=== PATIENT | female | born 1990 | race Caucasian/White ===

== ENCOUNTER → 2018-04-24 16:50 | Outpatient (CLI) | payer BC, SELFPAY ==
[2016-10-19 11:20] VITALS: BMI 30.9
[2018-04-29 11:53] LABS: HPV Reflexed? NOT INDICATED
== END ==
PROVIDERS: Visit Provider Obstetrics & Gynecology
DX: Z01.419 Encounter for gynecological examination (general) (routine) without abnormal findings (principal); Z12.4 Encounter for screening for malignant neoplasm of cervix
CPT/HCPCS: 87624; 88175; G0145

== ENCOUNTER → 2018-05-18 09:05 | Outpatient (CLI) | payer BC, SELFPAY ==
[2018-05-18 11:07] LABS: Follicle Stimulating Hormone 6.4 mIU/mL; GGTP 12 U/L (5-55); Glucose 102 mg/dL (74-106)
[2018-05-18 11:14] LABS: Insulin 25.1 mU/L (2.6-37.6); Progesterone Level 0.25 ng/mL (See Comment); Vitamin D,25 Hydroxy 8.5 ng/mL (29.95-100.01)
[2018-05-19 20:06] LABS: DHEA Sulfate 139.3 ug/dL (84.8-378.0); Thyroid Peroxidase AB 10 IU/mL (0-34)
[2018-05-20 10:39] LABS: Sex Hormone-binding Globulin 51.4 nmol/L (24.6-122.0); Thyroglobulin Antibody < 1.0 IU/mL (0.0-0.9)
[2018-05-21 10:43] LABS: 17-Hydroxyprogesterone 40 ng/dL (.)
== END ==
PROVIDERS: Visit Provider Obstetrics & Gynecology
DX: N92.6 Irregular menstruation, unspecified (principal); E03.9 Hypothyroidism, unspecified; R63.5 Abnormal weight gain
CPT/HCPCS: 36415; 82306; 82627; 82947; 82977; 83001; 83498; 83525; 84144; 84146; 84270; 84403; 86376; 86800; 82626

== ENCOUNTER → 2018-06-06 12:57 | Outpatient (CLI) | payer BC, SELFPAY ==
[2016-10-19 11:20] VITALS: BMI 30.9
[2018-06-06 14:02] LABS: Estradiol 58.8 pg/mL
[2018-06-06 14:09] LABS: Progesterone Level 11.56 ng/mL (See Comment)
== END ==
PROVIDERS: Visit Provider Obstetrics & Gynecology
DX: N92.6 Irregular menstruation, unspecified (principal)
CPT/HCPCS: 36415; 82533; 82670; 84144

== ENCOUNTER → 2018-10-16 | Outpatient (CLI) | payer BC, SELFPAY ==
[2018-10-16 12:23] LABS: hCG Titer Quant., Serum < 1 mIU/mL (1-3)
[2018-10-16 12:28] LABS: Free T3 2.9 pg/mL (2.18-3.98); Glucose 105 mg/dL (74-106); Thyroid Stim Hormone (TSH) 3.67 uIU/mL (0.358-3.74)
[2018-10-16 12:30] LABS: Insulin 18.5 mU/L (2.6-37.6)
[2018-10-20 09:07] LABS: DHEA Sulfate 138.8 ug/dL (84.8-378.0)
[2018-10-20 16:38] LABS: T3 Reverse 15.1 ng/dL (9.2-24.1)
== END | disposition home or self-care (01) ==
LOC: WOBLAB 10:33
PROVIDERS: Visit Provider Obstetrics & Gynecology
DX: E02 Subclinical iodine-deficiency hypothyroidism (principal); Z13.89 Encounter for screening for other disorder
CPT/HCPCS: 36415; 82533; 82627; 82947; 83525; 84403; 84439; 84443; 84481; 84482; 84702; 82626

== ENCOUNTER → 2018-10-30 | Outpatient (CLI) | payer BC, SELFPAY ==
[2016-10-19 11:20] VITALS: BMI 30.9
[2018-10-30 12:15] LABS: Ferritin 111 ng/mL (8-252); Iron 58 ug/dL (50-170); Iron Binding Capacity,Total 349 ug/dL (250-450); Magnesium 2.2 mg/dL (1.6-2.6); PERCENT IRON SATURATION 16.6 % (15.0-55.0)
[2018-10-30 12:20] LABS: Vitamin B12 1092 pg/mL (211-911); Vitamin D,25 Hydroxy 43.5 ng/mL (29.95-100.01)
[2018-10-30 12:26] LABS: Homocysteine 14.7 umol/L (3.2-10.7)
[2018-11-01 20:07] LABS: Folate, Hemolysate Test 148.6 ng/mL (Not Estab.); Folate, RBC (Hct) Test 44.9 % (34.0-46.6)
[2018-11-02 11:58] LABS: Folates, RBC Test 331 ng/mL (>498)
== END | disposition home or self-care (01) ==
LOC: WOBLAB 11:18
PROVIDERS: Visit Provider Obstetrics & Gynecology
DX: N92.6 Irregular menstruation, unspecified (principal); E02 Subclinical iodine-deficiency hypothyroidism
CPT/HCPCS: 36415; 82306; 82607; 82728; 82747; 83090; 83540; 83550; 83735; 83921; 85014

== ENCOUNTER → 2018-11-12 | Outpatient (CLI) | payer BC, SELFPAY | END | disposition home or self-care (01) | LOC: LAB.FUTURE 11:24 | PROVIDERS: Visit Provider Obstetrics & Gynecology | DX: E02 Subclinical iodine-deficiency hypothyroidism (principal); N92.6 Irregular menstruation, unspecified ==

== ENCOUNTER → 2019-02-08 11:17 | Outpatient (CLI) | payer BC, SELFPAY ==
[2016-10-19 11:20] VITALS: BMI 30.9
[2019-02-08 12:23] LABS: Free T3 2.9 pg/mL (2.18-3.98); T4 Free Direct 1.19 ng/dL (0.76-1.46); Thyroid Stim Hormone (TSH) 4.44 uIU/mL (0.358-3.74)
[2019-02-08 12:24] LABS: Homocysteine 5.2 umol/L (3.2-10.7)
== END ==
PROVIDERS: Visit Provider Obstetrics & Gynecology
DX: E02 Subclinical iodine-deficiency hypothyroidism (principal)
CPT/HCPCS: 36415; 82746; 83090; 84439; 84443; 84481

== ENCOUNTER → 2019-11-15 09:20 | Outpatient (CLI) | payer BC, SELFPAY ==
[2019-11-15 11:09] LABS: hCG Titer Quant., Serum 171 mIU/mL (1-3)
[2019-11-16 12:58] LABS: Progesterone Level 0.72 ng/mL (See Comment)
== END ==
PROVIDERS: Visit Provider Obstetrics & Gynecology
DX: O20.0 Threatened abortion (principal); Z3A.00 Weeks of gestation of pregnancy not specified
CPT/HCPCS: 36415; 84144; 84702

== ENCOUNTER → 2019-11-17 09:13 | Outpatient (CLI) | payer BC, SELFPAY ==
[2019-11-17 12:09] LABS: hCG Titer Quant., Serum 107 mIU/mL (1-3)
== END ==
PROVIDERS: Visit Provider Obstetrics & Gynecology
DX: O20.0 Threatened abortion (principal); Z3A.00 Weeks of gestation of pregnancy not specified
CPT/HCPCS: 36415; 84702

== ENCOUNTER → 2020-10-20 14:25 | Outpatient (CLI) | payer BC, SELFPAY ==
[2016-10-19 11:20] VITALS: BMI 30.9
[2020-10-20 16:43] LABS: Absolute Lymphocyte Count 1.71 X10^3/uL (0.83-4.51); Absolute Neutrophil Count 2.8 X10^3/uL (2.0-7.7); Basophil# 0.02 X10^3/uL; Basophil% 0.4 % (0-1); Color, Urine Yellow (Yellow); Eosinophils% 1.9 % (0-5); Glucose, Dipstick Normal (Normal); Hematocrit 40.3 % (37-47); Hemoglobin 13.4 g/dL (12.0-15.0); Leukocyte Esterase-Dipstick 500 /ul (Negative); Lymphocyte # 1.71 X10^3/ul (0.83-4.51); Lymphocyte % 32.9 % (19-41); Mean Corp Hgb Conc 33.3 g/dL (32-36); Mean Corpuscular Hgb 27.4 pg (27.0-32.0); Mean Corpuscular Volume 82.4 fL (81-99); Mean Platelet Vol. 9.8 fl (6.2-12.0); Monocyte# 0.53 X10^3/uL; Monocyte% 10.2 % (0-10); NRBC Flagged by Analyzer 0 % (0-5); Neutrophil # 2.83 X10^3/uL (2.7-7.7); Neutrophil % 54.4 % (47-70); Nitrite-Dipstick Negative (Negative); Occult Blood-Urine Negative /ul (Negative); Platelet Count 244 K/mm3 (150-450); Protein-Dipstick 15 mg/dl (Negative); RBC Distribution Width CV 13.1 % (11.6-14.6); RBC Distribution Width SD 39.5 fl (35.1-43.9); Red Blood Count 4.89 M/mm3 (4.2-5.4); Urine Bilirubin Dipstick Negative (Negative); Urine Clarity Sl. Cloudy (Clear); Urine Urobilinogen Normal (Normal); White Blood Count 5.2 K/mm3 (4.4-11.0)
[2020-10-20 16:45] LABS: Amphetamine Urine VISTA NEGATIVE (<1000 ng/mL); Barbiturate Urine VISTA NEGATIVE (< 200 ng/mL); Benzodiazepine Urine VISTA NEGATIVE (< 200 ng/mL); Cocaine Urine VISTA NEGATIVE (< 300 ng/mL); Ecstacy Urine VISTA NEGATIVE (< 500 ng/mL); Methadone Urine VISTA NEGATIVE (< 300 ng/mL); PCP Urine VISTA NEGATIVE (< 25 ng/mL); THC Urine VISTA NEGATIVE (< 50 ng/mL); Vista UDS pH Range 6
[2020-10-20 17:06] LABS: Ketone-Dipstick 150 mg/dl (Negative)
[2020-10-20 17:34] LABS: Free T3 3.7 pg/mL (2.18-3.98); Thyroid Stim Hormone (TSH) 0.05 uIU/mL (0.358-3.74)
[2020-10-21 09:42] LABS: HIV - WCH Non-Reactive (Nonreactive); Hepatitis B Surface Antigen Non-Reactive (Nonreactive); Hepatitis C Antibody Non-Reactive (Nonreactive); Rubella IgG Reactive (Nonreactive); Syphilis Antibodies Non-reactive
[2020-10-24 03:06] LABS: Chlamydia By Nucleic Acid AMP Negative (Negative)
[2020-10-24 09:56] LABS: Gonococcus By Nucleic Acid AMP Negative (Negative)
== END ==
PROVIDERS: Visit Provider Obstetrics & Gynecology
DX: Z34.81 Encounter for supervision of other normal pregnancy, first trimester (principal); Z11.3 Encounter for screening for infections with a predominantly sexual mode of transmission; E03.9 Hypothyroidism, unspecified
CPT/HCPCS: 36415; 80307; 81002; 84439; 84443; 84481; 85025; 86703; 86762; 86780; 86803; 87340; 87491; 87591

== ENCOUNTER 2021-03-21 15:41 | Outpatient (CLI) | payer BC, SELFPAY ==
[2021-03-21 15:57] LABS: Hematocrit 37.9 % (37-47); Hemoglobin 12.7 g/dL (12.0-15.0); Mean Corp Hgb Conc 33.5 g/dL (32-36); Mean Corpuscular Hgb 29.6 pg (27.0-32.0); Mean Corpuscular Volume 88.3 fL (81-99); Mean Platelet Vol. 9.7 fl (6.2-12.0); Platelet Count 228 K/mm3 (150-450); RBC Distribution Width CV 13.4 % (11.6-14.6); RBC Distribution Width SD 43.6 fl (35.1-43.9); Red Blood Count 4.29 M/mm3 (4.2-5.4); White Blood Count 10.3 K/mm3 (4.4-11.0)
== END 2021-03-21 23:59 | disposition short-term general hospital (02) ==
LOC: WOBLAB 15:42
PROVIDERS: Visit Provider Obstetrics & Gynecology
DX: Z34.83 Encounter for supervision of other normal pregnancy, third trimester (principal)
CPT/HCPCS: 36415; 85027

== ENCOUNTER 2021-05-21 12:07 | Outpatient (CLI) | payer BC, SELFPAY | END 2021-05-21 23:59 | disposition home or self-care (01) | LOC: LABSPEC 12:11 | PROVIDERS: Visit Provider Student in an Organized Health Care Education/Training Program | DX: Z36.85 Encounter for antenatal screening for Streptococcus B (principal) | CPT/HCPCS: 87077; 87081; 87186 ==

== ENCOUNTER 2021-06-08 12:27 | Inpatient (IN) | payer BC, SELFPAY ==
[2021-06-08] VITALS (14 sets, daily range): BP systolic 106–141; BP diastolic 53–82; PULSE 69–96; RESP 16; TEMP 36.4–37.1; O2SAT 94–96; BMI 26.4
--- NOTE | 2021-06-08 13:07 | PCM.HP.BLA ---
History and Physical Date of Admission: 06/08/21 ACOG ANTEPARTUM RECORD - HISTORY AND PHYSICAL (06/08/2021) Name: RUPAL MORENO History of this : This is a 30 year old [id number] presents at 40 wks + 3 days gestation in active labor. OB Physician: Liliana Camarillo MD 's Physician: Kenn Almonte ...................................................................... : 1990 Age: 30 Address: [address] [place] [address] Phone: (H) [phone] (O) [phone] Insurance Carrier: [employer] [facility] [id number] Emergency Contact: DOMINGO MORENO [phone] ...................................................................... Final ELIAS: 06/05/21 By Ultrasound: 7w3d PARITY: (G-Total Pregnancies P-Fullterm,Premature,Induced AB,Spont AB, Ectopics, Multiple,Living) ELIAS CONFIRMATION: By LMP: 08/24/20 Initial Exam: 06/05/21 Final ELIAS: 06/05/21 OB PROBLEM LIST: Carnivore diet - NEEDS KETONE CHECK Declines Carrier and Genetic screening EPDS on 10/20/2020 = 8 GBS pos Plans epidural. Plans to breast feed. Subclinical HYPOthyroidism ALLERGIES: Nickel Hives and/or rash Nickel Swelling (localized) No Known Drug Allergies MEDICATIONS: Calcium 600 + Minerals 600 mg calcium- 200 unit tablet daily L-Methylfolate 7.5 mg tablet 1 PO QD selenium 200 mcg capsule daily Supplement (s) [No Strength] iodine Supplement (s) [No Strength] T3 42 mcg am 30 mcg afternoon Supplement (s) [No Strength] T4 75 mcg daily Vitamin C 500 mg tablet daily Vitamin D3 5,000 unit tablet daily vitamin E 200 unit capsule daily vitamin K2 40 mcg tablet daily SOCIAL HISTORY: Smoking - Never Alcohol Use - denies drinking Diet - all meat no plants Lifestyle - Exercise - walking Employer - [employer] Job Description - fiscal accountant Illicit Drug Use - denies use of street drugs Sexual Activity - [employer] Residence - lives with Place of - [place], [place] Hours Worked - PT Spouse-Sig Other Name - Domingo Spouse-Sig Other Occupation - senior oracle database administrator Spouse-Sig Other Phone No - [phone] Children Name(s) - Nba '17 PRIOR DELIVERY HISTORY DEL DATE GEST LAB WT LB WT OZ TYPE ANES LABOR TX 05 Oct 31 39 14 6 8 Vag Epidural No 20 Aug 20 5 0 0 0 Sab None No ANTEPARTUM FLOW CHART VISIT GE RTC FU F F CA U U DATE WK MD WKS HT PN HR M SS BP ED WT CA GL D EF ST __ ____ ___ __ __ ___ __ __ __ ___ __ __ __ ___ __ 14 May 38 CM 39 39 + V + 134/70 0 161 ne ne 07 May 37 CM 1 37 V + + 110/60 sl 158 - - 14 Apr 34 SHM 2 33 V + + 122/64 0 157 - - 04 Apr 33 SHM 2 33 V + 117/60 0 157 tr ne Apr 16 SHM 2 30 ? + + 124/70 sl 154 tr - 05 Apr 14 SHM 2 26 ? + + 138/82 0 150 tr - 03 Mar 09 SHM 4 24 ? + + 110/62 0 143 - - 03 Feb 03 SHM 4 20 ? on + 100/68 0 139 ne ne Dec 29 SHM 4 + o 120/74 134 - - 03 Nov 25 SHM 5 on US 110/70 0 135 tr - ANTEPARTUM NOTE(S): May 28 2021: FM well May 21 2021: doing well Apr 30 2021: Apr 20 2021: doing well Apr 06 2021: see note Mar 21 2021: see copy of thyroid labs Feb 16 2021: Wants to discuss the Glucola Regimen Jan 17 2021: Dec 15 2020: Nov 17 2020: feeling well. AM COMPREHENSIVE ANTEPARTUM NOTE(S): May 29 2021: H taken to OB. tkg May 28 2021: 38/6w. Hypothyroidism. Managed by other MD. GBS pos. F/u 1w. CM May 25 2021: GBS pos May 21 2021: Rupal is 37w6d here for PNV. Good FM. Slight edema. She is doing well. She is seeing a specialist for her hypothyroidism. She expressed that she would like to keep her placenta after delivery. GBS and LARC done today. No other questions/concerns at this time. MR May 21 2021: 37/6w. GBS done. Hypothyroidism - managed by other physician. Desires to take placenta home, will need to sign papers on labor and delivery. F/u 1w. CM Apr 30 2021: Rupal is 34w6d here for PNV good FM slight edema. no conerns today. no ketones. BR Apr 20 2021: Rupal is 33w3d. Here for PNV. She is doing well. No complaints or concerns at this time. Good FM. No edema. 1+ ketones in urine. Long dip negative. MR Apr 08 2021: US tody for S<D, carnivore diet - EFW 1650g (22nd%). Findings reviewed. Udip no ketones today. Discussed plan. Will scan copy to chart. PTL, FM precautions. Continue T4 75mcg daily, repeat labs with thyroid specialist in 3 weeks as planned. Apr 06 2021: Has plan to discuss further with Dr MCMANUS. She does not plan T-dap. Reviewed FM, PTL. Negative ketones today in office. LMT Mar 21 2021: Rupal is here for visit. Has copy of thyroid labs for our chart. Reviewed FM, PTL, PROM, and Tdap vaccine. LMT Mar 21 2021: Discussed maternity leave. Considering 4 vs. 12 weeks as will deliver during season! Recent TFTs reviewed, low FT4, recently increased to 75mcg daily T4, reviewed importance of adequate T4 for brain development. Will f/u with thyroid practitioner later this week, I recommend FT4 closer to 1. Discussed PPBC, optimal spacing. Desires closely spaced . Plans , NFP Feb 16 2021: Rupal presents here today for PNV at 24 wks 3 days and declines offer for Glucola/Instructions as she would like to discuss with MARIETTA first as she would like to opt out. LAUREN Feb 16 2021: Pt concerned about Glucola testing. Offered home glucose monitoring as alternative - fasting and 1h postprandial blood sugars. Pt refuses both, will consider further. I reviewed with her indications for universal testing, pt reports understanding that even women without risk factors are at risk for gestational diabetes. Discussed goal of risks assessment and modification including risk for neonata Jan 17 2021: Rupal is here with Domingo for US and visit at 20.1w. Ketones are neg. Baby active. No edema. Feeling well w no specific concerns today. Enjoying US pictures. DOLORES. Jan 17 2021: Anatomy scan normal, MALE, EFW 56th%. FUNDAL placenta. Ok for . Reviewed recent OSH TFTs, FT4 0.83. Maintain 50mcg T4. Urine ketones negative today. d/c progesterone supplementation. f/u in 4 weeks. Dec 26 2020: Entry for 12/15/20: Ketones negative today. Reviewed importance of eating sufficient amounts to avoid significant ketosis. Will plan for long dip qvisit. Also discussed importance of T4 for , pt is self-titrating associated with sx and reveals she increased home dose T4 supplementation last month. Nov 17 2020: Reviewed labs wnl. Rh positive. 4+ ketones previously. Reviewed limited evidence for ketosis in absence of ketoacidosis in and documented harms associated with ketoacidosis. Discussed si/sx acidosis, pt low risk given non-diabetic and long-term, but will require additional surveillance when /lactating. Pt indicates preference to avoid glucola. Will plan for fingerst REVIEW OF SYSTEMS: GENERAL - Denies fever, or chills SKIN - Denies rash, new skin lesions, or change in moles EYES - Denies blurred vision, or change in visual acuity EARS - Denies ear pain, or difficulty hearing NOSE - Denies nasal congestion, discharge, or bleeding MOUTH - Denies sore throat, or difficulty swallowing NECK - Denies pain or swelling RESPIRATORY - Denies shortness of breath, cough, wheezing CARDIOVASCULAR - Denies palpitations, chest pain, orthopnea, PND, peripheral edema, syncope or claudication GASTROINTESTINAL - Denies nausea, vomiting, diarrhea, constipation, Denies abdominal pain, melena and or bright red blood GENITOURINARY - Denies dysuria, frequency of urination, urgency, or hesitancy MUSCULOSKELETAL - Denies joint or muscle pain, or back pain NEUROLOGICAL - Denies localized numbness, weakness, or tingling PSYCHIATRIC - Denies depression, anxiety, substance abuse or suicide attempts ENDOCRINE - Denies heat or cold intolerance, weight loss or gain, increasing thirst HEMATO-IMMUNOLOGIC - Denies easy bruising, bleeding, oral ulcerations or recurrent infections GENETICS SCREENING: Age 35+ years: No Thalassemia: No Neural Tube Defect: No Down Syndrome: No NIRMAL-SACHS: No Sickle Cell Disease: No Hemophilia: No Musc. Dystrophy: No Cystic Fibrosis: No-declines screening Dorado Chorea: No Mental Retardation: No Fragile X: No Other genetic: No Other defects: No SABs/still births: No Drugs since LMP: No INFECTION HISTORY: High risk AIDS: No High risk Hepatitis: No Exposed to TB: No Exposed to Herpes: No Rash/viral illness since LMP: No History of STD: No MENSTRUAL HISTORY: *Menses Amount/Duration: 6 daysMenses Regularity: irregularFrequency: variableMenarche (Age Onset): 17* PAST SUMMARY: PARITY: 1. Total Pregnancies............ 3 2. Full Term Pregnancies........ 1 3. Premature.................... 0 4. Abortions - Induced.......... 0 5. Abortions - Spontaneous...... 1 6. Ectopics..................... 0 7. Multiple Births.............. 0 8. Living Children.............. 1 PAST #1: Date of :.................. 10/19/16 Gestation Weeks:................ 39 Length of labor(hours):......... 14 Sex:............................ M Weight-lbs:............... 6 Weight-oz:................ 8 Type of Delivery:............... Vag Type of Anesthesia:............. Epidural Place of Delivery:.............. [facility] Treatment of Labor?:.... No Comment: CAN X 1 PAST #2: Date of :.................. 11/04/19 Gestation Weeks:................ 5 Length of labor(hours):......... 0 Sex:............................ Weight-lbs:............... 0 Weight-oz:................ 0 Type of Delivery:............... Sab Type of Anesthesia:............. None Place of Delivery:.............. none Treatment of Labor?:.... No Comment: NO D+C PHYSICAL EXAMINATION General Appearence: 30 yo female in no acute distress Vital Signs: AF, VSS Heart: RRR without rubs or gallops Lungs: CTA x 2 Breasts: deferred Abdomen: gravid Pelvis: Cervix: Presentation: cephalic Station: Fetus: Size: AGA Movement: present Heart: present LAB TEST(S) ORDERED SINCE:09/08/20 10/24/2020 CHLAMYDIA/GC ADRY APTIMA 10/21/2020 RUBELLA IGG 10/21/2020 L509.8000 10/21/2020 HIV - [facility] 10/21/2020 HEPATITIS C ANTIBODY 10/21/2020 HEPATITIS B SURFACE ANTIGEN 10/20/2020 URINE DRUG SCREEN (VISTA) 10/20/2020 URINALYSIS, ROUTINE (DIPSTICK) 10/20/2020 THYROID STIM HORMONE (TSH) 10/20/2020 T4 FREE DIRECT 10/20/2020 T AND S-NO CHARGE W/PNP 10/20/2020 FREE T3 10/20/2020 CBC W/DIFF, AUTOMATED 05/25/2021 RULE OUT BETA STREP (GRP. B) 03/21/2021 CBC-COMPLETE BLOOD CNT NO DIFF == ==== Order Observation Description Value Ref_Range A* Site == ==== RULE OUT BETA S NOTE GÓMEZ CBC-COMPLETE BL NOTE GÓMEZ CBC-COMPLETE BL WBC 10.3 K/mm3 4.4-11.0 ML CBC-COMPLETE BL RBC 4.29 M/mm3 4.2-5.4 ML CBC-COMPLETE BL HGB 12.7 g/dL 12.0-15.0 ML CBC-COMPLETE BL HCT 37.9 37-47 ML CBC-COMPLETE BL MCV 88.3 fL 81-99 ML CBC-COMPLETE BL MCH 29.6 pg 27.0-32.0 ML CBC-COMPLETE BL MCHC 33.5 g/dL 32-36 ML CBC-COMPLETE BL RDW CV 13.4 11.6-14.6 ML CBC-COMPLETE BL RDW SD 43.6 fl 35.1-43.9 ML CBC-COMPLETE BL PLT 228 K/mm3 150-450 ML CBC-COMPLETE BL MPV 9.7 fl 6.2-12.0 ML CHLAMYDIA/GC NA NOTE GÓMEZ CHLAMYDIA/GC NA CHLAMY,NUC ACID Negative Negative LCI CHLAMYDIA/GC NA GC BY NUC ACID Negative Negative LCI Performed at: = - [facility] [place] [id number] Advertising Operations Coordinator: Anne Cervantes MD, Phone: [phone] HEPATITIS C ANT NOTE GÓMEZ HEPATITIS C ANT HEPATITIS C AB Non-Reactive Nonreactive ML Non Reactive: < 0.8 Equivocal: >/= 0.8 to < 1.0 Reactive: >/= 1.0 The CDC recommends that a reactive/equivocal HCV antibody result be followed up by the HCV Nucleic Acid Amplification test (970834) HEPATITIS B PRANAY NOTE GÓMEZ HEPATITIS B PRANAY HEP B SURF AG Non-Reactive Nonreactive ML HIV - [facility] NOTE GÓMEZ HIV - [facility] HIV Non-Reactive Nonreactive ML L509.8000 NOTE GÓMEZ L509.8000 SYPHILIS ABS Non-reactive ML RUBELLA IGG NOTE GÓMEZ RUBELLA IGG RUBELLA IGG Reactive Nonreactive ML Antibody Results Interpretation of Immune Status Non Reactive Presumed Non-Immune Equivocal Equivocal Reactive Presumed Immune PN N [facility]~[address] [place], [address]~ T AND AB SCREEN GEL NEGATIVE ML T4 FREE DIRECT NOTE GÓMEZ T4 FREE DIRECT T4 FREE DIRECT 0.70 ng/dL 0.76-1.46 L ML THYROID STIM HO NOTE GÓMEZ THYROID STIM HO TSH 0.05 uIU/mL 0.358-3.74 L ML FREE T3 NOTE GÓMEZ FREE T3 FREE T3 3.7 pg/mL 2.18-3.98 ML URINALYSIS, ROU NOTE GÓMEZ URINALYSIS, ROU COLOR Yellow Yellow ML URINALYSIS, ROU URINE CLARITY Sl. Cloudy Clear ML URINALYSIS, ROU GLUCOSE, UR Normal mg/dl Normal ML URINALYSIS, ROU BILIRUBIN URINE Negative mg/dL Negative ML URINALYSIS, ROU KETONE UR 150 mg/dl Negative A ML CRITICAL VALUE VERIFIED. CALLED TO LOUISA REILLY RN WOBLAB 10/20/20 1706 Jd Garcia. RESULTS READ BACK BY SAME . CRITICAL VALUE *H URINALYSIS, ROU SP.GR. DIPSTX 1.020 1.002-1.030 ML URINALYSIS, ROU PH UR 6.0 5.0 - 8.0 ML URINALYSIS, ROU PROT DIPSTX 15 mg/dl Negative A ML URINALYSIS, ROU UROBILI Normal mg/dl Normal ML URINALYSIS, ROU NITRITE Negative Negative ML URINALYSIS, ROU OCCULT BLOOD-UR Negative /ul Negative ML URINALYSIS, ROU LEUK ESTERASE 500 /ul Negative A ML URINE DRUG SCRE NOTE GÓMEZ URINE DRUG SCRE VISTA UDS PH 6 ML URINE DRUG SCRE AMPHETAMINES NEGATIVE <1000 ng/mL ML URINE DRUG SCRE BARBITIURATES NEGATIVE < 200 ng/mL ML URINE DRUG SCRE BENZODIAZIPINE NEGATIVE < 200 ng/mL ML URINE DRUG SCRE COCAINE NEGATIVE < 300 ng/mL ML URINE DRUG SCRE ECSTACY NEGATIVE < 500 ng/mL ML URINE DRUG SCRE METHADONE NEGATIVE < 300 ng/mL ML URINE DRUG SCRE OPIATES NEGATIVE < 300 ng/mL ML URINE DRUG SCRE PCP NEGATIVE < 25 ng/mL ML URINE DRUG SCRE THC NEGATIVE < 50 ng/mL ML CBC W/DIFF, AUT NOTE GÓMEZ CBC W/DIFF, AUT WBC 5.2 K/mm3 4.4-11.0 ML CBC W/DIFF, AUT RBC 4.89 M/mm3 4.2-5.4 ML CBC W/DIFF, AUT HGB 13.4 g/dL 12.0-15.0 ML CBC W/DIFF, AUT HCT 40.3 37-47 ML CBC W/DIFF, AUT MCV 82.4 fL 81-99 ML CBC W/DIFF, AUT MCH 27.4 pg 27.0-32.0 ML CBC W/DIFF, AUT MCHC 33.3 g/dL 32-36 ML CBC W/DIFF, AUT RDW CV 13.1 11.6-14.6 ML CBC W/DIFF, AUT RDW SD 39.5 fl 35.1-43.9 ML CBC W/DIFF, AUT PLT 244 K/mm3 150-450 ML CBC W/DIFF, AUT MPV 9.8 fl 6.2-12.0 ML CBC W/DIFF, AUT NEUT% 54.4 47-70 ML CBC W/DIFF, AUT LY% 32.9 19-41 ML CBC W/DIFF, AUT MONO% 10.2 0-10 H ML CBC W/DIFF, AUT EO% 1.9 0-5 ML CBC W/DIFF, AUT BASO% 0.4 0-1 ML CBC W/DIFF, AUT IG% 0.200 0.0-0.9 ML IG% - Immature Granulocytes (promyelocytes, myelocytes and metamyelocytes) > 1% indicates that a LEFT SHIFT is Present. CBC W/DIFF, AUT ABSOLUTE NEUT 2.8 X10 3/uL 2.0-7.7 ML CBC W/DIFF, AUT ABSOLUTE LYMPH 1.71 X10 3/uL 0.83-4.51 ML CBC W/DIFF, AUT NUCLEATED RBC 0 0-5 ML Streptococcus agalactiae (B) Amount Growth Growth Streptococcus agalactiae (B): REACTION Ampicillin Islt MARTHA <=0.25 Penicillin G Islt MARTHA <=0.06 S cefTRIAXone Islt MARTHA <=0.12 S Clindamycin Islt MARTHA >=1 R Clindamycin.induced Susc Islt NEG Linezolid Islt MARTHA <=2 S Vancomycin Islt MARTHA 0.5 S O POSITIVE == ==== Impression /Plan: 40 wks + 3 days intrauterine in active3 labor. Preparations in progress for delivery.
[2021-06-08] MEDS: Methylergonovine 0.2 MG/ML Ampul IM (13:08)
--- NOTE | 2021-06-08 13:23 | EX.PCM.OBRPT ---
Vaginal Delivery Findings Description of Procedure: Patient arrived with precipitous vaginal delivery. Normal spontaneous vaginal delivery hands and knees maternal position, of a viable male infant, vertex. Head and shoulders delivered with ease. Cord was cut and clamped. They was handed off to patient. Placenta was delivered via cord traction and fundal massage. Second-degree midline perineal laceration noted and repaired in typical fashion. EBL 300 cc Apgars 8/9. No IV access at time of admission, given Methergine IM and Cytotec p.o.
[2021-06-08] MEDS: miSOPROStol 200 MCG Tablet 1000 MCG PO (13:25)
[2021-06-09] VITALS (11 sets, daily range): BP systolic 111–130; BP diastolic 58–77; PULSE 68–84; RESP 12–16; TEMP 36.4–36.9; O2SAT 96–98
--- NOTE | 2021-06-09 09:42 | PCM.PN.OB ---
Subjective Subjective Patient without complaints. Wants to go home but baby needs to stay because she did not receive antibiotics prior to delivery for positive group B strep status. Objective Data Objective Data Vital Signs: Vital Signs Temp Pulse Resp BP Pulse Ox 98.5 F 70 14 116/58 L 98 06/09/21 08:50 06/09/21 08:50 06/09/21 08:50 06/09/21 08:50 06/09/21 08:50 Oxygen Delivery Method Room Air Weight: 164 lb Body Mass Index (BMI) 26.4 Assessment & Plan (1) Spontaneous vaginal delivery: PLAN: Doing well day #1 status post routine spontaneous vaginal delivery. Continuing present care.
[2021-06-10 03:03] VITALS: BP 115/66; PULSE 71; PULSE 84; RESP 16; TEMP 36.8
[2021-06-10 03:04] VITALS: O2SAT 84
[2021-06-10 08:04] VITALS: BP 118/68; PULSE 78
[2021-06-10 08:06] VITALS: BP 118/68; PULSE 78; RESP 16; TEMP 37
--- NOTE | 2021-06-10 10:46 | PCM.PN.OB ---
Subjective Subjective Patient without complaints per nursing. Baby able to go so patient ready to go home. Objective Data Objective Data Vital Signs: Vital Signs Temp Pulse Resp BP Pulse Ox 98.6 F 78 16 118/68 84 06/10/21 08:06 06/10/21 08:06 06/10/21 08:06 06/10/21 08:06 06/10/21 03:04 Oxygen Delivery Method Room Air Weight: 164 lb Body Mass Index (BMI) 26.4 Assessment & Plan (1) Spontaneous vaginal delivery: PLAN: Doing well day #2 status post routine spontaneous vaginal delivery. Will discharge to home.
--- NOTE | 2021-06-10 10:47 | PCM.DC ---
Discharge Instructions Diet Discharge Diet: No restrictions Activity Discharge Activity: May Drive (In 1 to 2 days if not taking narcotic pain medication), May Shower and May Take a Tub Bath May resume sexual activity in: 4-6 weeks Additional Activity Instructions:: Nothing in the vagina for 4-6 weeks. You may return to work/school in 6 weeks. Dressing / Incision Call your doctor if you observe: Fever of 101 or Higher, Inability to urinate, Inability to have a bowel movement and Using more than 1 pad per hour Follow Up Care When: Call [phone] to make an appointment with your doctor in 6 weeks. Test Results: Test results from this visit will be discussed in further detail at your follow-up appointment, if applicable. Discharge Plan Admission Admit Date/Time: 06/08/21 12:27 Primary Reason for Your Visit: Vaginal Delivery Attending Provider: Isael Reyez Primary Care Provider: Care Physician,No Primary Instructions Patient Instructions: After a Vaginal Discharge Orders/Prescriptions Prescriptions: No Action Prenatabs FA 1 TABLET tablet 1 tab PO DAILY RF: 0 Ibuprofen [Motrin] 800 MG tablet 800 mg PO TID PRN PRN (Reason: pain or cramping) Qty: 30 RF: 0 liothyronine 25 mcg Tablet 30 mcg PO DAILY RF: 0 liothyronine 50 mcg Tablet 42 mcg PO DAILY RF: 0 levothyroxine [Euthyrox] 75 mcg Tablet 75 mcg PO DAILY RF: 0 Referrals / Follow Up: Care Physician,No Primary [Primary Care Provider] - Disposition Disposition (needs filled in before D/C Order can be placed): Home, Self Care
== END 2021-06-10 09:50 | disposition home or self-care (01) | DRG 806 ==
LOC: WPOUT 12:27 → WP 12:27
PROVIDERS: Admitting Provider Obstetrics & Gynecology; Visit Provider Obstetrics & Gynecology
DX: O62.3 Precipitate labor (principal); Z37.0 Single live birth; O98.82 Other maternal infectious and parasitic diseases complicating childbirth; E03.9 Hypothyroidism, unspecified; B95.1 Streptococcus, group B, as the cause of diseases classified elsewhere; O70.1 Second degree perineal laceration during delivery; O99.284 Endocrine, nutritional and metabolic diseases complicating childbirth; Z79.899 Other long term (current) drug therapy; Z3A.40 40 weeks gestation of pregnancy
CPT/HCPCS: 59025; 59050; 99218; G0378

== ENCOUNTER → 2021-07-20 | Outpatient (CLI) | payer BC, SELFPAY ==
[2021-07-26 16:13] LABS: HPV Reflexed? NOT INDICATED
== END | disposition home or self-care (01) ==
PROVIDERS: Visit Provider Obstetrics & Gynecology
DX: Z12.4 Encounter for screening for malignant neoplasm of cervix (principal)
CPT/HCPCS: 88175; G0145